=== PATIENT | female | born 1990 | race Caucasian/White ===

== ENCOUNTER 2016-12-25 10:24 | Day surgery (SDC) | payer OTHER ==
[2016-12-25] MEDS ORDERED: Midazolam 1 MG/ML 2 ML SDV ONE (10:39)
[2016-12-25] MEDS ORDERED: fentaNYL 100 MCG/2 ML SDV ONE ×2 (10:39→10:40)
[2016-12-25] MEDS ORDERED: Lidocaine 2% 5 ML SDV ONE (10:39)
[2016-12-25] MEDS ORDERED: Propofol 200 MG/20 ML SDV ONE (10:39)
[2016-12-25] MEDS ORDERED: Lactated Ringers 1,000 ML IV SCH (11:00)
--- NOTE | 2016-12-25 11:19 | PCM.PREANE ---
Preanesthetic Assessment - Anesthesia/Transfusion/Family Hx Anesthesia History: Prior Anesthesia Without Reaction Family History of Anesthesia Reaction: No Transfusion History: No Prior Transfusion(s) - Review of Systems General: No Symptoms Pulmonary: No Symptoms Cardiovascular: No Symptoms Gastrointestinal: Nausea Other: Reports: None - Physical Assessment NPO Status Date: 12/24/16 O2 Sat by Pulse Oximetry: 98 Respiratory Rate: 16 Vital Signs: Last Vital Signs Temp 37.0 C 12/25/16 11:08 Pulse 93 12/25/16 11:08 Resp 16 12/25/16 11:08 BP 136/86 12/25/16 11:08 Pulse Ox 98 12/25/16 11:08 Height: 1.68 m Weight: 68.946 kg ASA Class: 2 Mental Status: Alert & Oriented x3 Airway Class: Mallampati = 2 Dentition: Reports: Normal Dentition ROM/Head Extension: Full Lungs: Clear to Auscultation, Normal Respiratory Effort Cardiovascular: Regular Rate, Regular Rhythm - Lab Values: Laboratory Last Values WBC 7.66 K/uL (4.0-11.0) 12/25/16 11:05 RBC 4.46 M/uL (4.30-5.90) 12/25/16 11:05 Hgb 13.8 g/dL (12.0-16.0) 12/25/16 11:05 Hct 40.2 % (36.0-46.0) 12/25/16 11:05 MCV 90.1 fL (80.0-98.0) 12/25/16 11:05 MCH 30.9 pg (27.0-32.0) 12/25/16 11:05 MCHC 34.3 g/dL (31.0-37.0) 12/25/16 11:05 RDW Std Deviation 41.5 fl (28.0-62.0) 12/25/16 11:05 RDW Coeff of Lenin 13 % (11.0-15.0) 12/25/16 11:05 Plt Count 154 K/uL (150-400) 12/25/16 11:05 MPV 10.40 fL (7.40-12.00) 12/25/16 11:05 Nucleated RBC % 0.0 /100WBC 12/25/16 11:05 Nucleated RBCs # 0 K/uL 12/25/16 11:05 - Allergies Allergies/Adverse Reactions: Allergies Allergy/AdvReac Type Severity Reaction Status Date / Time hydrocodone Allergy Seizure Verified 12/24/16 13:57 - Anesthesia Plan Pre-Op Medication Ordered: None - Acknowledgements Anesthesia Type Planned: General Anesthesia Pt an Appropriate Candidate for the Planned Anesthesia: Yes Alternatives and Risks of Anesthesia Discussed w Pt/Guardian: Yes Pt/Guardian Understands and Agrees with Anesthesia Plan: Yes PreAnesthesia Questionnaire HEENT History: Reports: Other (See Below) Other HEENT History: wears glasses, hx of fx nose Respiratory History: Reports: Asthma Other Respiratory History: exercise induced asthma, rarely uses inhaler Gastrointestinal History: Reports: Chronic Constipation, Hemorrhoids [employer] COORD[employer] History: Reports: Other OB/BYN History: currently breast feeding Musculoskeletal History: Reports: Fracture, Other (See Below) Other Musculoskeletal History: scoliosis Neurological History: Reports: Seizure, Vertigo, Other (See Below) Other Neuro History: had seizure as a reaction to lortab, hydrocodone and a vaccination, has meniers disease, hx of motion sickness Psychiatric History: Reports: Anxiety, Depression Hematologic History: Reports: Idiopathic Thrombocytopenia Dermatologic History: Reports: Eczema - Infectious Disease History Infectious Disease History: Reports: Chicken Pox, Influenza, Mononucleosis - Past Surgical History HEENT Surgical History: Reports: Oral Surgery, Tonsillectomy Other HEENT Surgeries/Procedures: wisdom teeth - SUBSTANCE USE Smoking Status *Q: Never Smoker Second Hand Smoke Exposure: No Recreational Drug Use History: No - HOME MEDS Home Medications: Home Meds Doxylamine Succinate [Nighttime Sleep-Aid] 25 mg PO BEDTIME PRN 12/24/16 [ History] Ondansetron [Zofran] 4 mg PO ASDIRECTED PRN 12/24/16 [History] Sertraline [Zoloft] 100 mg PO DAILY 12/24/16 [History] - CURRENT (IN HOUSE) MEDS Current Meds: Current Medications Lactated Ringer's (Ringers, Lactated) 1,000 mls @ 100 mls/hr IV ASDIRECTED [facility] Last Admin: 12/25/16 11:07 Dose: 100 mls/hr Discontinued Medications Fentanyl (Sublimaze) Confirm Administered Dose 100 mcg .ROUTE .STK-MED ONE Stop: 12/25/16 10:40 Fentanyl (Sublimaze) Confirm Administered Dose 100 mcg .ROUTE .STK-MED ONE Stop: 12/25/16 10:41 Lidocaine (Xylocaine-Mpf 2%) Confirm Administered Dose 10 ml .ROUTE .STK-MED ONE Stop: 12/25/16 10:40 Midazolam HCl (Versed 1 Mg/Ml) Confirm Administered Dose 2 mg .ROUTE .STK-MED ONE Stop: 12/25/16 10:40 Propofol (Diprivan 20 Ml) Confirm Administered Dose 400 mg .ROUTE .STK-MED ONE Stop: 12/25/16 10:40
[2016-12-25] MEDS ORDERED: Acetaminophen/oxyCODONE 325-5 MG Tab PO PRN ×2 (12:15)
[2016-12-25] MEDS ORDERED: Ketorolac 30 MG/ML SDV IVPUSH ONE (12:15)
[2016-12-25] MEDS ORDERED: Morphine 4 MG/ML Syringe IVPUSH PRN (12:15)
[2016-12-25] MEDS ORDERED: Ondansetron 4 MG/2 ML SDV IVPUSH PRN (12:15)
[2016-12-25] MEDS ORDERED: Morphine 2 MG/ML Syringe IVPUSH PRN (12:15)
[2016-12-25] MEDS ORDERED: Promethazine 25 MG/ML SDV IM PRN (12:15)
--- NOTE | 2016-12-25 12:18 | PCM.DCSUM1 ---
Discharge Summary - Discharge Data Discharge Date: 12/25/16 Discharge Disposition: Home, Self-Care 01 Condition: Good - Patient Instructions Diet: Usual Diet as Tolerated Activity: As Tolerated Showering/Bathing: July Shower Notify Provider of: Fever, Increased Pain, Nausea and/or Vomiting - Discharge Plan Home Medications: Home Meds Doxylamine Succinate [Nighttime Sleep-Aid] 25 mg PO BEDTIME PRN 12/24/16 [ History] Ondansetron [Zofran] 4 mg PO ASDIRECTED PRN 12/24/16 [History] Sertraline [Zoloft] 100 mg PO DAILY 12/24/16 [History] - General Info Date of Service: 12/25/16 Functional Status: Reports: Pain Controlled - Review of Systems General: Reports: No Symptoms HEENT: Reports: No Symptoms Pulmonary: Reports: No Symptoms Cardiovascular: Reports: No Symptoms Gastrointestinal: Reports: No Symptoms Genitourinary: Reports: No Symptoms Musculoskeletal: Reports: No Symptoms Skin: Reports: No Symptoms Neurological: Reports: No Symptoms Psychiatric: Reports: No Symptoms - Patient Data Vitals - Most Recent: Last Vital Signs Temp 37.0 C 12/25/16 11:08 Pulse 93 12/25/16 11:08 Resp 16 12/25/16 11:19 BP 136/86 12/25/16 11:08 Pulse Ox 98 12/25/16 11:19 Weight - Most Recent: 68.946 kg Lab Results - Last 24 hrs: Laboratory Results - last 24 hr 12/25/16 12/25/16 Range/Units 11:05 11:05 WBC 7.66 (4.0-11.0) K/uL RBC 4.46 (4.30-5.90) M/uL Hgb 13.8 (12.0-16.0) g/dL Hct 40.2 (36.0-46.0) % MCV 90.1 (80.0-98.0) fL MCH 30.9 (27.0-32.0) pg MCHC 34.3 (31.0-37.0) g/dL RDW Std Deviation 41.5 (28.0-62.0) fl RDW Coeff of Lenin 13 (11.0-15.0) % Plt Count 154 (150-400) K/uL MPV 10.40 (7.40-12.00) fL Nucleated RBC % 0.0 /100WBC Nucleated RBCs # 0 K/uL Blood Type O POSITIVE Antibody Screen NEGATIVE Med Orders - Current: Current Medications Lactated Ringer's (Ringers, Lactated) 1,000 mls @ 100 mls/hr IV ASDIRECTED [facility] Last Admin: 12/25/16 11:07 Dose: 100 mls/hr Discontinued Medications Fentanyl (Sublimaze) Confirm Administered Dose 100 mcg .ROUTE .STK-MED ONE Stop: 12/25/16 10:40 Fentanyl (Sublimaze) Confirm Administered Dose 100 mcg .ROUTE .STK-MED ONE Stop: 12/25/16 10:41 Lidocaine (Xylocaine-Mpf 2%) Confirm Administered Dose 10 ml .ROUTE .STK-MED ONE Stop: 12/25/16 10:40 Midazolam HCl (Versed 1 Mg/Ml) Confirm Administered Dose 2 mg .ROUTE .STK-MED ONE Stop: 12/25/16 10:40 Propofol (Diprivan 20 Ml) Confirm Administered Dose 400 mg .ROUTE .STK-MED ONE Stop: 12/25/16 10:40 - Exam General: Reports: Alert, Oriented HEENT: Reports: Pupils Equal, Pupils Reactive, EOMI, Mucous Membr. Moist/[place] Neck: Reports: Supple Lungs: Reports: Clear to Auscultation, Normal Respiratory Effort Cardiovascular: Reports: Regular Rate, Regular Rhythm GI/Abdominal Exam: Normal Bowel Sounds, Soft, Non-Tender, No Organomegaly, No Distention, No Abnormal Bruit, No Mass, Pelvis Stable (Female) Exam: Normal External Exam, Normal Speculum Exam, Normal Bimanual Exam Rectal (Female) Exam: Normal Exam, Normal Rectal Tone Back Exam: Reports: Normal Inspection, Full Range of Motion Extremities: Normal Inspection, Normal Range of Motion, Non-Tender, No Pedal Edema, Normal Capillary Refill Skin: Reports: Warm, Dry, Intact Wound/Incisions: Reports: Healing Well Neurological: Reports: No New Focal Deficit Psy/Mental Status: Reports: Alert, Normal Affect, Normal Mood *Q Meaningful Use (DIS) - VTE *Q VTE Criteria *Q: - Stroke *Q Stroke Criteria *Q: - AMI *Q AMI Criteria *Q:
--- NOTE | 2016-12-25 12:20 | PCM.OPNOTE ---
- General Post-Op/Procedure Note Date of Surgery/Procedure: 12/25/16 Operative Procedure(s): D&E Pre Op Diagnosis: Blighted ovum Post-Op Diagnosis: Same Anesthesia Technique: General LMA Primary Surgeon: Moises Silva EBL in mLs: 100 Complications: None Condition: Good
[2016-12-25] MEDS ORDERED: fentaNYL 100 MCG/2 ML SDV IVPUSH PRN (12:25)
--- NOTE | 2016-12-25 12:48 | PCM.POSTAN ---
POST ANESTHESIA ASSESSMENT - MENTAL STATUS Mental Status: Alert, Oriented - RESPIRATORY Respiratory Status: Respiratory Rate WNL, Airway Patent, O2 Saturation Stable - CARDIOVASCULAR CV Status: Pulse Rate WNL, Blood Pressure Stable - GASTROINTESTINAL GI Status: No Symptoms - PAIN Pain Score: 0 - POST OP HYDRATION Hydration Status: Adequate & Stable
[2016-12-25] MEDS ORDERED: Acetaminophen/Codeine 300-30 MG Tab PO PRN (13:31)
[2016-12-25] MEDS ORDERED: Acetaminophen 325 MG Tab PO PRN (13:31)
--- NOTE | 2016-12-25 14:36 | PCM48HPAN ---
Post Anesthesia Note - EVALUATION WITHIN 48HRS OF ANESTHETIC Vital Signs in Normal Range: Yes Patient Participated in Evaluation: Yes Respiratory Function Stable: Yes Airway Patent: Yes Cardiovascular Function Stable: Yes Hydration Status Stable: Yes Pain Control Satisfactory: Yes Nausea and Vomiting Control Satisfactory: Yes Mental Status Recovered: Yes
[2016-12-25 15:05] VITALS: BP 102/70
[2016-12-25] MEDS ORDERED: Ketorolac 30 MG/ML SDV IVPUSH PRN (18:00)
--- NOTE | 2016-12-25 19:16 | OR ---
SURGEON: Moises Silva MD DATE OF PROCEDURE: 12/25/2016 PREOPERATIVE DIAGNOSIS: Blighted ovum. POSTOPERATIVE DIAGNOSIS: Blighted ovum. OPERATION PERFORMED: Dilatation and evacuation. RING SORTER: No. ANESTHESIA: ANH Doss. COMPLICATION: None. INDICATION OF SURGERY: The patient had a declining beta hCG-ADOLFO. She had repeated ultrasound which shows pulse and no cardiac activity. PROCEDURE IN DETAIL: The patient was brought to the OR, properly identified, and after adequate level of the anesthesia, the patient placed in lithotomy position. Prepped and draped in sterile fashion as usual. Single-tooth tenaculum was applied to the cervix and the cervix sequentially dilated to accommodate #8 cannula. The cannula was placed in the endometrial cavity. The endometrial cavity is evacuated completely from all products of conception. After that, a gentle curetting of the endometrial cavity to make sure it was empty. Once ascertained it was empty, re-suctioning of the endometrium cavity was done and after that, the procedure was ended. Instrument and sponge count was correct. The patient tolerated the procedure well and went to recovery room in stable general condition. BRITTNEE / IRENA /[id number]
== END 2016-12-25 14:55 | disposition home or self-care (01) ==
LOC: MW.SDS 10:24
PROVIDERS: ATTEND Obstetrics & Gynecology
DX: O02.0 Blighted ovum and nonhydatidiform mole (principal); F41.8 Other specified anxiety disorders; J45.990 Exercise induced bronchospasm; Z79.899 Other long term (current) drug therapy; Z88.5 Allergy status to narcotic agent; Z90.89 Acquired absence of other organs; Z98.818 Other dental procedure status
CPT/HCPCS: 36415; 59820; 85027; 86850; 86900; 86901; A9270; J2250; J3010; J7120; 00940; 88305; J2704

== ENCOUNTER 2020-07-29 23:42 | Inpatient (IN) | payer BC ==
[2020-07-29] MEDS ORDERED: Oxytocin/0.9 % Sodium Chloride 30 UNIT/500 ML BAG IV SCH ×2 (23:45)
[2020-07-29] MEDS ORDERED: Terbutaline 1 MG/ML SDV SUBCUT PRN (23:47)
[2020-07-29] MEDS ORDERED: Ondansetron 4 MG/2 ML SDV IVPUSH PRN (23:47)
[2020-07-29] MEDS ORDERED: Sodium Chloride 0.9% 10 ML SDV IV PRN (23:47)
[2020-07-29] MEDS ORDERED: Misoprostol 25 MCG (1/4 of 100 MCG) Tab VAG PRN (23:47)
[2020-07-29] MEDS ORDERED: Water For Irrigation,Sterile 1,000 ML Container IRR PRN (23:47)
[2020-07-29] MEDS ORDERED: Lidocaine 1% 50 ML MDV INJECT PRN (23:47)
[2020-07-29] MEDS ORDERED: Sodium Chloride 0.9% 10 ML Syringe FLUSH PRN (23:47)
[2020-07-29] MEDS ORDERED: Carboprost Tromethamine 250 MCG/1 ML Amp IM PRN (23:47)
[2020-07-29] MEDS ORDERED: Sodium Chloride 0.9% 2.5 ML Syringe FLUSH PRN (23:47)
[2020-07-29] MEDS ORDERED: Tranexamic Acid 1,000 MG in Sodium Chloride 0.9% 100 ML IV PRN (23:47)
[2020-07-29] MEDS ORDERED: Misoprostol 200 MCG Tab PO PRN (23:47)
[2020-07-29] MEDS ORDERED: hydrOXYzine Pamoate 25 MG Cap PO PRN (23:57)
[2020-07-30] MEDS: Lactated Ringers 1,000 ML IV SCH ×2 (00:15→12:50)
[2020-07-30] MEDS: Misoprostol 25 MCG (1/4 of 100 MCG) Tab PO PRN ×2 (01:02→05:17)
[2020-07-30] MEDS ORDERED: Misoprostol 25 MCG (1/4 of 100 MCG) Tab PO PRN (04:00)
[2020-07-30] MEDS: Misoprostol 25 MCG (1/4 of 100 MCG) Tab VAG PRN (05:17)
--- NOTE | 2020-07-30 07:37 | PCM.LDHP ---
L&D History of Present Illness - General Date of Service: 07/30/20 Admit Problem/Dx: Patient Status Order with Admit Dx/Problem 07/29/20 23:47 Patient Status [ADT] Routine 07/30/20 00:54 Patient Status [ADT] Routine Admission Diagnosis/Problem Admission Diagnosis/Problem 07/30/20 07:23 [id number] @ 42 weeks gestation ([place]: 07/16/20 by LMP) presenting to L&D for induction of labor due to low amniotic fluid level and post-dates. She was seen in our clinic by Evelia Harvey CNM for a consult d/t post-dates . That was her first visit with us in the clinic. Prior to that, she had been followed by a Slabbing Machine Operator (DEM) and had planned for a home delivery. Reactive NST obtained. However, BPP was 6/8 with 2 points off for amniotic fluid (DVP: 1.8 cm). A discussion was had regarding our recommendation for induction. Patient desired to speak with her apple thinner and report back. She later decided to move forward with induction. Patient reports increased anxiety with medical care. 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 She has also experienced SAB x10 (2 resulting in D&E). She reports having completed and passed a limited glucose challenge during . Reports to nurse that she smokes marijuana almost daily; reports she has a medical marijuana card. Anatomic survey not completed. She declines GBS screening; status unknown. Reports to nurse that she was GBS+ with her other children. Declines GBS disease with previous pregnancies. Hyperemesis gravidarum reported this ; treated adequately with Diclegis. Pre- weight reported as 160 lbs (BMI: 25.8). She has gained approximately 54 lbs this . O+, Rubella unknown 07/30/20 07:37 Source of Information: Patient History Limitations: Reports: No Limitations - Related Data Allergies/Adverse Reactions: Allergies Allergy/AdvReac Type Severity Reaction Status Date / Time hydrocodone Allergy Seizure Verified 07/28/20 20:28 oxycodone Allergy Seizure Verified 07/28/20 20:28 Home Medications: Home Meds Ondansetron [Zofran] 8 mg PO ASDIRECTED PRN 12/24/16 [History] Albuterol Sulfate 1 inh NEB ASDIRECTED PRN 10/25/17 [History] Cholecalciferol (Vitamin D3) [Vitamin D3] 1,000 units PO DAILY 10/25/17 [History] Doxylamine Succinate/Vit B6 [Diclegis Dr 10-10 mg Tablet] 2 tab PO BID 10/25/17 [History] Pnv No.95/Ferrous Fum/Folic AC [ Vitamin Tablet] 1 tab PO DAILY 10/25/17 [History] Past Medical History HEENT History: Reports: Other (See Below) Other HEENT History: wears glasses, hx of fx nose Cardiovascular History: Reports: Other (See Below) Other Cardiovascular History: "low blood pressure" Respiratory History: Reports: Asthma Other Respiratory History: exercise induced asthma, rarely uses inhaler Gastrointestinal History: Reports: Hemorrhoids Genitourinary History: Reports: None 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: , Spontaneous Musculoskeletal History: Reports: Fracture, Other (See Below) Other Musculoskeletal History: scoliosis Neurological History: Reports: Migraines, Seizure, Vertigo, Other (See Below) Other Neuro History: had seizure as a reaction to lortab, oxycodone and a vaccination, has meniers disease, hx of motion sickness Psychiatric History: Reports: Anxiety, Depression Endocrine/Metabolic History: Reports: None Hematologic History: Reports: Idiopathic Thrombocytopenia, Other (See Below) Other Hematologic History: had bleeding disorder at the age of 11, no problems since Dermatologic History: Reports: Eczema - Infectious Disease History Infectious Disease History: Reports: Chicken Pox, Influenza, Mononucleosis - Past Surgical History Head Surgeries/Procedures: Reports: None HEENT Surgical History: Reports: Oral Surgery, Tonsillectomy Other HEENT Surgeries/Procedures: wisdom teeth extraction Social & Family History - Family History HEENT: Reports: Hearing Impairment, Macular Degeneration, Other (See Below) Other HEENT Family History: meneires disease Respiratory: Reports: Asthma GI: Reports: Chronic Constipation, Diverticulitis, Diverticulosis : Reports: Other (See Below) Other Family History: brother enlarged prostate OBGYN: Reports: PID, Other (See Below) Other OBGYN Family History: STd-sister Musculoskeletal: Reports: Back pain, Chronic, Neck Pain, Chronic, Osteoarthritis Neurological: Reports: Alzheimers Disease, Migraines, Seizure Psychiatric: Reports: Anxiety, Bipolar, Depression, PTSD, Schizophrenia Endocrine/Metabolic: Reports: Diabetes, Type I, Obesity/MBI 30+ Dermatologic: Reports: Eczema Oncologic: Reports: Lung - Caffeine Use Caffeine Use: Reports: Coffee H&P Review of Systems - Review of Systems: Review Of Systems: See Below General: Reports: No Symptoms HEENT: Reports: No Symptoms Pulmonary: Reports: No Symptoms Cardiovascular: Reports: No Symptoms Gastrointestinal: Reports: No Symptoms Genitourinary: Reports: No Symptoms Musculoskeletal: Reports: No Symptoms Skin: Reports: No Symptoms Psychiatric: Reports: No Symptoms Neurological: Reports: No Symptoms Hematologic/Lymphatic: Reports: No Symptoms Immunologic: Reports: No Symptoms L&D Exam - Exam Exam: See Below - Vital Signs Weight: 214 lb - OB Specific Movement: Active Heart Tones: Present Heart Rate (FHR) Variability: Moderate (6-25 bmp) - Prasad Score Prasad Score Cervix Position: Midposition Prasad Score Consistency: Medium Prasad Score Effacement: 31-50% Prasad Score Dilation: 1-2 cm Prasad Score Infant's Station: -2 Prasad Score Total: 5 - Exam General: Alert, Oriented, Cooperative Lungs: Normal Respiratory Effort Cardiovascular: Regular Rate, Regular Rhythm GI/Abdominal Exam: Soft, Non-Tender Rectal Exam: Deferred Genitourinary: Deferred Back Exam: Normal Inspection, Full Range of Motion Extremities: Normal Inspection, Normal Range of Motion, Non-Tender, Normal Capillary Refill Skin: Warm, Dry, Intact Neurological: Strength Equal Bilateral, Normal Speech, Normal Tone, Sensation Intact Psychiatric: Alert, Normal Affect, Normal Mood - Patient Data Lab Results Last 24 hrs: Laboratory Results - last 24 hr 07/30/20 07/30/20 07/30/20 Range/Units 00:15 00:15 00:15 WBC 13.21 H (4.0-11.0) K/uL RBC 4.49 (4.30-5.90) M/uL Hgb 12.6 (12.0-16.0) g/dL Hct 38.6 (36.0-46.0) % MCV 86.0 (80.0-98.0) fL MCH 28.1 (27.0-32.0) pg MCHC 32.6 (31.0-37.0) g/dL RDW Std Deviation 44.2 (28.0-62.0) fl RDW Coeff of Lenin 15 (11.0-15.0) % Plt Count 222 (150-400) K/uL MPV 10.00 (7.40-12.00) fL Urine Color Cancelled Urine Appearance Cancelled Urine pH Cancelled Ur Specific [place] Cancelled Urine Protein Cancelled Urine Glucose (UA) Cancelled Urine Ketones Cancelled Urine Occult Blood Cancelled Urine Nitrite Cancelled Urine Bilirubin Cancelled Urine Ictotest Cancelled Urine Urobilinogen Cancelled Ur Leukocyte Esterase Cancelled U Hyaline Cast (Auto) Cancelled Urine RBC Cancelled Urine WBC Cancelled Ur Epithelial Cells Cancelled Ur Squamous Epith Cells Cancelled Ur Renal Epithelial Cell Cancelled Calcium Oxalate Crystal Cancelled Uric Acid Crystals Cancelled Triple Phos Crystals Cancelled Other Crystals Cancelled Amorphous Sediment Cancelled Urine Bacteria Cancelled Fine Granular Casts Cancelled Coarse Granular Casts Cancelled Waxy Casts Cancelled RBC Casts Cancelled WBC Casts Cancelled Urine Mucus Cancelled Urine Other Cancelled Urine Trichomonas Cancelled Urine Yeast Cancelled Urine Sperm Cancelled Ur Oval Fat Bodies Cancelled Urinalysis Comment Cancelled Urine Opiates Screen NEGATIVE (NEGATIVE) Ur Oxycodone Screen NEGATIVE (NEGATIVE) Urine Methadone Screen NEGATIVE (NEGATIVE) Ur Barbiturates Screen NEGATIVE (NEGATIVE) Ur Phencyclidine Scrn NEGATIVE (NEGATIVE) Ur Amphetamine Screen NEGATIVE (NEGATIVE) U Methamphetamines Scrn NEGATIVE (NEGATIVE) U Benzodiazepines Scrn NEGATIVE (NEGATIVE) U Cocaine Metab Screen NEGATIVE (NEGATIVE) U Marijuana (THC) Screen POSITIVE (NEGATIVE) Hep Bs Antigen Index (<1.0) INDEX Hep C Ab Index (GENNA) (<0.8) INDEX Rubella IgG Ab Index IU/mL SARS-CoV-2 RNA (RODRIGO) (NEGATIVE) Blood Type Antibody Screen 07/30/20 07/30/20 07/30/20 Range/Units 00:15 00:15 00:15 WBC (4.0-11.0) K/uL RBC (4.30-5.90) M/uL Hgb (12.0-16.0) g/dL Hct (36.0-46.0) % MCV (80.0-98.0) fL MCH (27.0-32.0) pg MCHC (31.0-37.0) g/dL RDW Std Deviation (28.0-62.0) fl RDW Coeff of Lenin (11.0-15.0) % Plt Count (150-400) K/uL MPV (7.40-12.00) fL Urine Color Urine Appearance Urine pH Ur Specific [place] Urine Protein Urine Glucose (UA) Urine Ketones Urine Occult Blood Urine Nitrite Urine Bilirubin Urine Ictotest Urine Urobilinogen Ur Leukocyte Esterase U Hyaline Cast (Auto) Urine RBC Urine WBC Ur Epithelial Cells Ur Squamous Epith Cells Ur Renal Epithelial Cell Calcium Oxalate Crystal Uric Acid Crystals Triple Phos Crystals Other Crystals Amorphous Sediment Urine Bacteria Fine Granular Casts Coarse Granular Casts Waxy Casts RBC Casts WBC Casts Urine Mucus Urine Other Urine Trichomonas Urine Yeast Urine Sperm Ur Oval Fat Bodies Urinalysis Comment Urine Opiates Screen (NEGATIVE) Ur Oxycodone Screen (NEGATIVE) Urine Methadone Screen (NEGATIVE) Ur Barbiturates Screen (NEGATIVE) Ur Phencyclidine Scrn (NEGATIVE) Ur Amphetamine Screen (NEGATIVE) U Methamphetamines Scrn (NEGATIVE) U Benzodiazepines Scrn (NEGATIVE) U Cocaine Metab Screen (NEGATIVE) U Marijuana (THC) Screen (NEGATIVE) Hep Bs Antigen Index 0.1 (<1.0) INDEX Hep C Ab Index (GENNA) < 0.02 (<0.8) INDEX Rubella IgG Ab Index > 500.0 IU/mL SARS-CoV-2 RNA (RODRIGO) NEGATIVE (NEGATIVE) Blood Type O POSITIVE Antibody Screen NEGATIVE Result Diagrams: 07/30/20 00:15 - Problem List (1) Supervision of normal IUP (intrauterine ) in multigravida SNOMED Code(s): 294219276, 482282486, 360820541 ICD Code: Z34.80 - ENCOUNTER FOR SUPRVSN OF NORMAL , UNSP TRIMESTER Status: Acute Priority: High Current Visit: Yes Qualifiers: Trimester: third trimester Qualified Code(s): Z34.83 - Encounter for supervision of other normal , third trimester (2) History of trauma SNOMED Code(s): 448476024 ICD Code: Z87.898 - PERSONAL HISTORY OF OTHER SPECIFIED CONDITIONS Status: Acute Priority: High Current Visit: Yes (3) Marijuana use SNOMED Code(s): 328612596 ICD Code: F12.90 - CANNABIS USE, UNSPECIFIED, UNCOMPLICATED Status: Acute Priority: High Current Visit: Yes (4) Anxiety during in third trimester, antepartum SNOMED Code(s): 37434107692024, 98142456386698 ICD Code: O99.343 - OTH MENTAL DISORDERS COMPLICATING , THIRD TRIMESTER; F41.9 - ANXIETY DISORDER, UNSPECIFIED Status: Acute Priority: High Current Visit: Yes Problem List Initiated/Reviewed/Updated: Yes Orders Last 24hrs: Active Orders 24 hr Category Date Time Status Patient Status [ADT] Routine ADT 07/30/20 00:54 Active Bedrest Bathroom Privileges [RC] ASDIRECTED Care 07/29/20 23:47 Active Communication Order [RC] ASDIRECTED Care 07/29/20 23:47 Active Communication Order [RC] ASDIRECTED Care 07/29/20 23:47 Active Communication Order [RC] ASDIRECTED Care 07/29/20 23:47 Active Heart Tones [RC] CONTINUOUS Care 07/29/20 23:47 Active Non Stress Test [RC] PER UNIT ROUTINE Care 07/29/20 23:47 Active May Shower [RC] ASDIRECTED Care 07/29/20 23:47 Active Notify Provider [RC] PRN Care 07/29/20 23:47 Active Notify Provider [RC] PRN Care 07/29/20 23:47 Active Notify Provider [RC] PRN Care 07/29/20 23:47 Active Notify Provider [RC] STAT Care 07/29/20 23:47 Active Oxygen Therapy [RC] ASDIRECTED Care 07/29/20 23:47 Active Up ad Iveth [RC] ASDIRECTED Care 07/29/20 23:47 Active Vaginal Exam [RC] PRN Care 07/29/20 23:47 Active Vaginal Exam [RC] PRN Care 07/29/20 23:47 Active Vital Signs [RC] PER UNIT ROUTINE Care 07/29/20 23:47 Active Vital Signs [RC] PER UNIT ROUTINE Care 07/29/20 23:47 Active Regular Diet [DIET] Diet 07/29/20 Breakfast Active CHLAMYDIA AND GONORRHEA BY TMA Routine Lab 07/29/20 23:47 Received GROUP B STREP BY PCR [MOLEC] Routine Lab 07/29/20 23:47 Received RPR (SYPHILIS SERO) W/ RFLX [REF] Routine Lab 07/29/20 23:47 Received UA W/MICROSCOPIC [URIN] Routine Lab 07/30/20 00:15 Ordered Carboprost Tromethamine [Hemabate DS] Med 07/29/20 23:47 Active 250 mcg IM ASDIRECTED PRN Lactated Ringers [Ringers, Lactated] 1,000 ml Med 07/29/20 23:45 Active IV ASDIRECTED Lidocaine 1% [Xylocaine 1%] Med 07/29/20 23:47 Active 50 ml INJECT ONETIME PRN Ondansetron [Zofran] Med 07/29/20 23:47 Active 4 mg IVPUSH Q6H PRN Oxytocin/0.9 % Sodium Chloride [Oxytocin 30 Unit/500 ML Med 07/29/20 23:45 Active -NS] 30 unit in 500 ml IV TITRATE Oxytocin/0.9 % Sodium Chloride [Oxytocin 30 Unit/500 ML Med 07/29/20 23:45 Active -NS] 30 unit in 500 ml IV TITRATE Sodium Chloride 0.9% [Normal Saline] Med 07/29/20 23:47 Active 10 ml IV ASDIRECTED PRN Sodium Chloride 0.9% [Saline Flush] Med 07/29/20 23:47 Active 10 ml FLUSH ASDIRECTED PRN Sodium Chloride 0.9% [Saline Flush] Med 07/29/20 23:47 Active 2.5 ml FLUSH ASDIRECTED PRN Terbutaline [Brethine] Med 07/29/20 23:47 Active 0.25 mg SUBCUT ASDIRECTED PRN Tranexamic Acid [Cyklokapron] 1,000 mg Med 07/29/20 23:47 Active Sodium Chloride 0.9% [Normal Saline] 100 ml IV ONETIME Water For Irrigation,Sterile [Sterile Water for Med 07/29/20 23:47 Active Irrigation] 1,000 ml IRR ASDIRECTED PRN hydrOXYzine pamoate [Vistaril] Med 07/29/20 23:57 Active 50 mg PO BEDTIME PRN miSOPROStoL [Cytotec] Med 07/29/20 23:47 Active 200 mcg PO ONETIME PRN miSOPROStoL [Cytotec] Med 07/29/20 23:47 Active 25 mcg PO ONETIME PRN miSOPROStoL [Cytotec] Med 07/30/20 04:00 Active 25 mcg PO Q4H PRN miSOPROStoL [Cytotec] Med 07/29/20 23:47 Active 25 mcg VAG ONETIME PRN miSOPROStoL [Cytotec] Med 07/30/20 04:00 Active 25 mcg VAG Q4H PRN Scalp Electrode [WOMSER] Per Unit Routine Oth 07/29/20 23:47 Ordered Medication Administration Instruction [OM.PC] Q3H Oth 07/29/20 23:47 Ordered Peripheral IV Insertion Adult [OM.PC] Routine Oth 07/29/20 23:47 Ordered Resuscitation Status Routine Resus Stat 07/29/20 23:47 Ordered Medication Orders Carboprost Tromethamine (Carboprost Tromethamine 250 Mcg/1 Ml Amp) 250 mcg IM ASDIRECTED PRN PRN Reason: Post Hemorrhage Hydroxyzine Pamoate (Hydroxyzine Pamoate 25 Mg Cap) 50 mg PO BEDTIME PRN PRN Reason: Sleep Last Admin: 07/30/20 01:02 Dose: 50 mg Documented by: ARIEL Oxytocin/Sodium Chloride (Oxytocin 30 Unit/500 Ml-Ns) 30 unit in 500 mls @ 2 mls/hr IV TITRATE ALISON; Protocol Lactated Ringer's (Ringers, Lactated) 1,000 mls @ 150 mls/hr IV ASDIRECTED ALISON Last Admin: 07/30/20 00:15 Dose: 150 mls/hr Documented by: ARIEL Oxytocin/Sodium Chloride (Oxytocin 30 Unit/500 Ml-Ns) 30 unit in 500 mls @ 999 mls/hr IV TITRATE ALISON Tranexamic Acid 1,000 mg/ (Sodium Chloride) 110 mls @ 660 mls/hr IV ONETIME PRN PRN Reason: Bleeding Lidocaine HCl (Lidocaine 1% 50 Ml Mdv) 50 ml INJECT ONETIME PRN PRN Reason: Laceration repair Misoprostol (Misoprostol 25 Mcg (1/4 Of 100 Mcg) Tab) 25 mcg VAG ONETIME PRN PRN Reason: Cervical Ripening Last Admin: 07/30/20 01:05 Dose: 25 mcg Documented by: ARIEL Misoprostol (Misoprostol 25 Mcg (1/4 Of 100 Mcg) Tab) 25 mcg VAG Q4H PRN PRN Reason: Cervical Ripening Last Admin: 07/30/20 05:17 Dose: 25 mcg Documented by: ARIEL Misoprostol (Misoprostol 200 Mcg Tab) 200 mcg PO ONETIME PRN PRN Reason: Post Hemorrhage Misoprostol (Misoprostol 25 Mcg (1/4 Of 100 Mcg) Tab) 25 mcg PO ONETIME PRN PRN Reason: Cervical Ripening Last Admin: 07/30/20 05:17 Dose: 25 mcg Documented by: Admin: 07/30/20 01:02 Dose: 25 mcg Documented by: ARIEL Misoprostol (Misoprostol 25 Mcg (1/4 Of 100 Mcg) Tab) 25 mcg PO Q4H PRN PRN Reason: Cervical Ripening Ondansetron HCl (Ondansetron 4 Mg/2 Ml Sdv) 4 mg IVPUSH Q6H PRN PRN Reason: Nausea/Vomiting Sodium Chloride (Sodium Chloride 0.9% 10 Ml Syringe) 10 ml FLUSH ASDIRECTED PRN PRN Reason: Keep Vein Open Sodium Chloride (Sodium Chloride 0.9% 2.5 Ml Syringe) 2.5 ml FLUSH ASDIRECTED PRN PRN Reason: Keep Vein Open Sodium Chloride (Sodium Chloride 0.9% 10 Ml Sdv) 10 ml IV ASDIRECTED PRN PRN Reason: IV Use Sterile Water (Water For Irrigation,Sterile 1,000 Ml Container) 1,000 ml IRR ASDIRECTED PRN PRN Reason: delivery Terbutaline Sulfate (Terbutaline 1 Mg/Ml Sdv) 0.25 mg SUBCUT ASDIRECTED PRN PRN Reason: Tacysystole Assessment/Plan Comment:: A: [id number] @ 42 weeks gestation ([place]: 07/16/20 by LMP) presenting to L&D for induction of labor due to low amniotic fluid level and post-dates. She was seen in our clinic by Evelia Harvey CNM for a consult d/t post-dates . That was her first visit with us in the clinic. Prior to that, she had been followed by a Slabbing Machine Operator (DEM) and had planned for a home delivery. Reactive NST obtained. However, BPP was 6/8 with 2 points off for amniotic fluid (DVP: 1.8 cm). A discussion was had regarding our recommendation for induction. Patient desired to speak with her apple thinner and report back. She later decided to move forward with induction. Patient reports increased anxiety with medical care. 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 She has also experienced SAB x10 (2 resulting in D&E). She reports having completed and passed a limited glucose challenge during . Reports to nurse that she smokes marijuana almost daily; reports she has a medic al marijuana card. Anatomic survey not completed. She declines GBS screening; status unknown. Reports to nurse that she was GBS+ with her other children. Declines GBS disease with previous pregnancies. Hyperemesis gravidarum reported this ; treated adequately with Diclegis. Pre- weight reported as 160 lbs (BMI: 25.8). She has gained approximately 54 lbs this . O+, Rubella unknown P: Admit for induction; cytotec to pitocin; epidural PRN; Dr. Silva updated.
[2020-07-30] MEDS ORDERED: Promethazine 25 MG Tab PO PRN ×2 (17:30→19:46)
[2020-07-30] MEDS ORDERED: Misoprostol 25 MCG (1/4 of 100 MCG) Tab PO ONE (17:31)
[2020-07-30] MEDS ORDERED: Misoprostol 25 MCG (1/4 of 100 MCG) Tab VAG ONE (17:32)
[2020-07-31] MEDS ORDERED: Misoprostol 25 MCG (1/4 of 100 MCG) Tab PO ONE (00:09)
[2020-07-31] MEDS: Misoprostol 25 MCG (1/4 of 100 MCG) Tab VAG PRN (00:38)
--- NOTE | 2020-07-31 06:14 | PCM.DEL ---
L & D Note - General Info Date of Service: 07/31/20 Mother's Due Date: 07/16/20 - Delivery Note Labor: Spontaneous, Augmented by ARM Cervical Ripening Method: Misoprostil Delivery Outcome: Livebirth Delivery Method: Spontaneous Vaginal Delivery-Single Infant Delivery Mode: Spontaneous Presentation: Vertex Anesthesia Type: None Amniotic Fluid Description: Meconium Stained Episiotomy Type: None Laceration: Perineal, Other (Left periclitoral skin tear, perineal skin tear; hemostatic, not repaired.) Placenta: Intact, Spontaneous, Meconium Stained Cord: 3 Vessels Estimated Blood Loss: 600 Resuscitation Needed: Yes Parsons: Suctioned, Bulb Syringe, Cathether, Stimulated, Warmed, [place] Used, Warmer Used Score 1 min: 2 Score 5 min: 8 Post Delivery Events: Other (see below) (Suspected terminal placental abruption.) Second Stage Interventions: Reports: Encouragement Given, Pushing Effectively, Pushing Involuntarily, Pushing, Knee Chest Position Delivery Comments (Free Text/Narrative):: Megan () s/p of viable post-dates NBM @ 42+1 weeks gestation (TORRIE(LMP) 07/16/20) following IOL d/t low amniotic fluid level and post-dates . She was seen in our clinic by Evelia Harvey CNM for a consult d/t post-dates 07/29/2020. That was her first medical visit this ; received care and limited testing with DEM. Cytotec IOL following BPP+NST 10/29 (-2 for LUIGI 2.9 (SDP 1.8)). O pos, Ab screen neg, R unknown, GBS positive with declination of prophylactic antibiotics for duration of labor. Cat I FHTs for most of prodromal labor. Cat II FHTs with deep variables into the 60s-80s with slow recovery back to 120s noted around 0430, RN called CNM to come at that time. Continuous monitoring implemented, IV bolus, position changes, and O2 applied to mother continuously for intrauterine resuscitation. Dr. Silva called to bedside at ~0500 am. SHWETHA instructed RN to notify assistant prosecuting attorney and RT to be on standby on unit. Membranes continued to remain intact at this time. Pain moderately controlled with coping mechanisms and breathing techniques, unmedicated. Dr. Silva present at bedside, EFM reviewed. SVE 5/100/-1 with bulging bag, AROM with no fluid completed at 0530 am, brief prolonged 1.5 min decelerations x2 noted in with the next 2 contractions then improvement of FHTs noted with contractions noted thereafter. Spontaneous involuntary pushes commenced at ~ 0540 am in hands and knees position. head delivered with involuntary pushes ~ 0550, body followed immediately thereafter with ~ 400-500 ml laya blood birthed with body indicative of terminal placenta abruption. Body nuchal reduced from right shoulder. Umbilical cord clamped x 2, cut by BETHM immediately following delivery. NBM brought immediately to warmer for assessment and resuscitation. Placenta birthed immediately with next contraction. None to scant vaginal bleeding then noted. IV pitocin bolus declined at this time for active third stage management, not indicated at this time. Patient then moved from hands and knees to semi-fowlers position. Uterus firm @U, no vaginal bleeding noted. Minor left periclitoral and perineal skin tears noted, hemostatic, not repaired. Cord blood difficult to collect from umbilical cord, sent to lab. Unable to collect cord gasses due to inadequate cord sample, attempted by RN x2. EBL 600 ml. APGARS 2/8. Weight 3670 g (8 lb 1 oz). Induction Criteria - Prasad Score Prasad Score Dilation: 3-4 cm Prasad Score Effacement: 40-50% Prasad Score 's Station: -3 Prasad Score Consistency: Soft Prasad Score Cervix Position: Posterior Prasad Score Total: 5 Prasad Score Presenting Part: Reports: Cephalic - Induction Gestational Age >/= 39 wks: Yes Estimated Pelvis: Reports: Adequate - General Info Date of Service: 07/31/20 Admission Dx/Problem (Free Text): Patient Status Order with Admit Dx/Problem 07/29/20 23:47 Patient Status [ADT] Routine 07/30/20 00:54 Patient Status [ADT] Routine Admission Diagnosis/Problem Admission Diagnosis/Problem 07/30/20 07:23 [id number] @ 42 weeks gestation ([place]RIE: 07/16/20 by LMP) presenting to L&D for induction of labor due to low amniotic fluid level and post-dates. She was seen in our clinic by Evelia Harvey CNM for a consult d/t post-dates . That was her first visit with us in the clinic. Prior to that, she had been followed by a Pmo Consultant (HELENA) and had planned for a home delivery. Reactive NST obtained. However, BPP was 6/8 with 2 points off for amniotic fluid (DVP: 1.8 cm). A discussion was had regarding our recommendation for induction. Patient desired to speak with her electric range servicer and report back. She later decided to move forward with induction. Patient reports increased anxiety with medical care. 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 She has also experienced SAB x10 (2 resulting in D&E). She reports having completed and passed a limited glucose challenge during . Reports to nurse that she smokes marijuana almost daily; reports she has a medical marijuana card. Anatomic survey not completed. She declines GBS screening; status unknown. Reports to nurse that she was GBS+ with her other children. Declines GBS disease with previous pregnancies. Hyperemesis gravidarum reported this ; treated adequately with Diclegis. Pre- weight reported as 160 lbs (BMI: 25.8). She has gained approximately 54 lbs this . O+, Rubella unknown 07/30/20 07:37 Functional Status: Reports: Pain Controlled, Tolerating Diet, Ambulating, Urinating - Review of Systems General: Reports: No Symptoms HEENT: Reports: No Symptoms Pulmonary: Reports: No Symptoms Cardiovascular: Reports: No Symptoms Gastrointestinal: Reports: No Symptoms Genitourinary: Reports: No Symptoms Musculoskeletal: Reports: No Symptoms Skin: Reports: No Symptoms Neurological: Reports: No Symptoms Psychiatric: Reports: No Symptoms - Patient Data Vitals - Most Recent: VSS, afebrile. See flowsheet. Weight - Most Recent: 214 lb Lab Results Last 24 Hours: Laboratory Results - last 24 hr 07/30/20 Range/Units 00:15 Group B Strep (PCR) POSITIVE H (NEGATIVE) Med Orders - Current: Current Medications Carboprost Tromethamine (Carboprost Tromethamine 250 Mcg/1 Ml Amp) 250 mcg IM ASDIRECTED PRN PRN Reason: Post Hemorrhage Hydroxyzine Pamoate (Hydroxyzine Pamoate 25 Mg Cap) 50 mg PO BEDTIME PRN PRN Reason: Sleep Last Admin: 07/30/20 01:02 Dose: 50 mg Documented by: Oxytocin/Sodium Chloride (Oxytocin 30 Unit/500 Ml-Ns) 30 unit in 500 mls @ 2 mls/hr IV TITRATE [facility]; Protocol Lactated Ringer's (Ringers, Lactated) 1,000 mls @ 150 mls/hr IV ASDIRECTED ALISON Last Admin: 07/30/20 12:50 Dose: 999 mls/hr Documented by: Oxytocin/Sodium Chloride (Oxytocin 30 Unit/500 Ml-Ns) 30 unit in 500 mls @ 999 mls/hr IV TITRATE ALISON Tranexamic Acid 1,000 mg/ (Sodium Chloride) 110 mls @ 660 mls/hr IV ONETIME PRN PRN Reason: Bleeding Lidocaine HCl (Lidocaine 1% 50 Ml Mdv) 50 ml INJECT ONETIME PRN PRN Reason: Laceration repair Misoprostol (Misoprostol 25 Mcg (1/4 Of 100 Mcg) Tab) 25 mcg VAG ONETIME PRN PRN Reason: Cervical Ripening Last Admin: 07/30/20 01:05 Dose: 25 mcg Documented by: Misoprostol (Misoprostol 25 Mcg (1/4 Of 100 Mcg) Tab) 25 mcg VAG Q4H PRN PRN Reason: Cervical Ripening Last Admin: 07/31/20 00:38 Dose: 25 mcg Documented by: Misoprostol (Misoprostol 200 Mcg Tab) 200 mcg PO ONETIME PRN PRN Reason: Post Hemorrhage Misoprostol (Misoprostol 25 Mcg (1/4 Of 100 Mcg) Tab) 25 mcg PO ONETIME PRN PRN Reason: Cervical Ripening Last Admin: 07/30/20 05:17 Dose: 25 mcg Documented by: Ondansetron HCl (Ondansetron 4 Mg/2 Ml Sdv) 4 mg IVPUSH Q6H PRN PRN Reason: Nausea/Vomiting Promethazine HCl (Promethazine 25 Mg Tab) 50 mg PO Q8H PRN PRN Reason: Other Last Admin: 07/30/20 19:57 Dose: 50 mg Documented by: Sodium Chloride (Sodium Chloride 0.9% 10 Ml Syringe) 10 ml FLUSH ASDIRECTED PRN PRN Reason: Keep Vein Open Sodium Chloride (Sodium Chloride 0.9% 2.5 Ml Syringe) 2.5 ml FLUSH ASDIRECTED PRN PRN Reason: Keep Vein Open Sodium Chloride (Sodium Chloride 0.9% 10 Ml Sdv) 10 ml IV ASDIRECTED PRN PRN Reason: IV Use Sterile Water (Water For Irrigation,Sterile 1,000 Ml Container) 1,000 ml IRR ASDIRECTED PRN PRN Reason: delivery Terbutaline Sulfate (Terbutaline 1 Mg/Ml Sdv) 0.25 mg SUBCUT ASDIRECTED PRN PRN Reason: Tacysystole Discontinued Medications Misoprostol (Misoprostol 25 Mcg (1/4 Of 100 Mcg) Tab) 25 mcg PO Q4H PRN PRN Reason: Cervical Ripening Misoprostol (Misoprostol 25 Mcg (1/4 Of 100 Mcg) Tab) 25 mcg PO ONETIME ONE Stop: 07/30/20 17:32 Last Admin: 07/30/20 19:58 Dose: 25 mcg Documented by: Misoprostol (Misoprostol 25 Mcg (1/4 Of 100 Mcg) Tab) 25 mcg VAG Q4H ONE Stop: 07/30/20 17:33 Last Admin: 07/30/20 19:59 Dose: 25 mcg Documented by: Misoprostol (Misoprostol 25 Mcg (1/4 Of 100 Mcg) Tab) 25 mcg PO ONETIME ONE Stop: 07/31/20 00:10 Last Admin: 07/31/20 00:38 Dose: 25 mcg Documented by: Promethazine HCl (Promethazine 25 Mg Tab) 25 mg PO Q8H PRN PRN Reason: Other - Exam General: Alert, Oriented, Cooperative, Moderate Distress (Anxiety and PTSD exacerbated with and experiences.) HEENT: Pupils Equal, Pupils Reactive, Mucous Membr. Moist/[place] Neck: Supple Lungs: Clear to Auscultation, Normal Respiratory Effort Cardiovascular: Regular Rate, Regular Rhythm GI/Abdominal Exam: Normal Bowel Sounds, Soft, Non-Tender, No Organomegaly, No Distention (Female) Exam: Normal External Exam, Enlarged Uterus ( uterus, firm @U), Vaginal Bleeding (No to scant vaginal bleeding.) Back Exam: Normal Inspection, Full Range of Motion Extremities: Normal Inspection, Normal Range of Motion, Non-Tender, No Pedal Edema, Normal Capillary Refill Skin: Warm, Dry, Intact Wound/Incisions: No Drainage Neurological: No New Focal Deficit Psy/Mental Status: Alert, Normal Affect, Normal Mood - Problem List & Annotations (1) (spontaneous vaginal delivery) SNOMED Code(s): 829508984 Code(s): O80 - ENCOUNTER FOR FULL-TERM UNCOMPLICATED DELIVERY Status: Acute Priority: High Current Visit: Yes (2) Placental abruption SNOMED Code(s): 435509137 Code(s): O45.90 - PREMATURE SEPARATION OF PLACENTA, UNSP, UNSP TRIMESTER Status: Acute Priority: High Current Visit: Yes (3) Lactating mother SNOMED Code(s): 349284131, 534673102 Code(s): Z39.1 - ENCOUNTER FOR CARE AND EXAMINATION OF LACTATING MOTHER Status: Acute Priority: High Current Visit: Yes - Problem List Review Problem List Initiated/Reviewed/Updated: Yes - Plan Plan:: Admit to inpatient unit following complicated by terminal placental abruption with of post-dates NBM. May ambulate with assistance, goal to ambulate 3-5 times daily. If patient has not spontaneously voided within 4 hours, please contact provider. May receive PO analgesia for pain and uterine cramping as needed. May consult specialty sales consultant as needed for support, desires to EBF. Plan for H/H collection tomorrow in am. See new orders. Dr. Silva notified and agreeable with POC.
[2020-07-31] MEDS ORDERED: Docusate Sodium 100 MG Cap PO PRN (06:16)
[2020-07-31] MEDS ORDERED: Benzocaine/Menthol 20%-0.5% Spray 78 GM Cannister TOP PRN (06:16)
[2020-07-31] MEDS ORDERED: Ibuprofen 400 MG Tab PO PRN (06:16)
[2020-07-31] MEDS ORDERED: Bisacodyl 10 MG Supp RECTAL PRN (06:16)
[2020-07-31] MEDS ORDERED: Witch Hazel Medicated Pads 40/Jar TOP PRN (06:16)
[2020-07-31] MEDS ORDERED: Lanolin 100% Cream 7 GM Tube TOP PRN (06:16)
[2020-07-31] MEDS ORDERED: Acetaminophen 500 MG Tab PO PRN (06:16)
[2020-07-31] MEDS: Ibuprofen 800 MG Tab PO PRN ×2 (06:36→21:36)
[2020-07-31] MEDS: Acetaminophen 500 MG Tab PO PRN (13:14)
[2020-07-31 14:07] LABS: C.TRACHOMATIS BY TMA Negative (Negative); N.GONORRHOEAE BY TMA Negative (Negative)
[2020-08-01] MEDS: Acetaminophen 500 MG Tab PO PRN ×2 (09:34→19:37)
[2020-08-01] MEDS: Ibuprofen 800 MG Tab PO PRN ×2 (16:13→22:58)
--- NOTE | 2020-08-01 17:08 | PCM.PNPP ---
- General Info Date of Service: 08/01/20 Admission Dx/Problem (Free Text): Patient Status Order with Admit Dx/Problem 07/29/20 23:47 Patient Status [ADT] Routine 07/30/20 00:54 Patient Status [ADT] Routine Admission Diagnosis/Problem Admission Diagnosis/Problem 07/30/20 07:23 [id number] @ 42 weeks gestation ([place]RIE: 07/16/20 by LMP) presenting to L&D for induction of labor due to low amniotic fluid level and post-dates. She was seen in our clinic by Evelia Harvey CNM for a consult d/t post-dates . That was her first visit with us in the clinic. Prior to that, she had been followed by a Financial Writer (DEM) and had planned for a home delivery. Reactive NST obtained. However, BPP was 6/8 with 2 points off for amniotic fluid (DVP: 1.8 cm). A discussion was had regarding our recommendation for in duction. Patient desired to speak with her impress associate and report back. She later decided to move forward with induction. Patient reports increased anxiety with medical care. 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 She has also experienced SAB x10 (2 resulting in D&E). She reports having completed and passed a limited glucose challenge during . Reports to nurse that she smokes marijuana almost daily; reports she has a medical marijuana card. Anatomic survey not completed. She declines GBS screening; status unknown. Reports to nurse that she was GBS+ with her other children. Declines GBS disease with previous pregnancies. Hyperemesis gravidarum reported this ; treated adequately with Diclegis. Pre- weight reported as 160 lbs (BMI: 25.8). She has gained approximately 54 lbs this . O+, Rubella unknown 07/30/20 07:37 Subjective Update: Mom is doing well. Baby well. Pediatric hospitalist decided to keep the baby for 48hrs b/c of the positive GBS status, not treated. Functional Status: Reports: Pain Controlled - Review of Systems General: Reports: No Symptoms HEENT: Reports: No Symptoms Pulmonary: Reports: No Symptoms Cardiovascular: Reports: No Symptoms Gastrointestinal: Reports: No Symptoms Genitourinary: Reports: No Symptoms Musculoskeletal: Reports: No Symptoms Skin: Reports: No Symptoms Neurological: Reports: No Symptoms Psychiatric: Reports: No Symptoms - General Info Date of Service: 08/01/20 - Patient Data Vital Signs - Most Recent: Last Vital Signs Temp 96.8 F L 08/01/20 08:06 Pulse 95 08/01/20 08:06 Resp 18 08/01/20 08:06 BP 122/78 08/01/20 08:06 Pulse Ox 98 08/01/20 08:06 Weight - Most Recent: 97.069 kg Lab Results - Last 24 Hours: Laboratory Results - last 24 hr 08/01/20 Range/Units 05:10 Hgb 12.6 (12.0-16.0) g/dL Hct 38.7 (36.0-46.0) % Med Orders - Current: Current Medications Acetaminophen (Acetaminophen 500 Mg Tab) 500 mg PO Q4H PRN PRN Reason: Pain Last Admin: 08/01/20 07:29 Dose: 500 mg Documented by: Acetaminophen (Acetaminophen 500 Mg Tab) 1,000 mg PO Q4H PRN PRN Reason: Pain Last Admin: 08/01/20 09:34 Dose: 500 mg Documented by: Benzocaine/Menthol (Benzocaine/Menthol 20%-0.5% Aldrich 78 Gm Cannister) 78 gm TOP ASDIRECTED PRN PRN Reason: Perineal Comfort Measure Last Admin: 07/31/20 06:36 Dose: 1 can Documented by: Bisacodyl (Bisacodyl 10 Mg Supp) 10 mg RECTAL ONETIME PRN PRN Reason: Constipation Docusate Sodium (Docusate Sodium 100 Mg Cap) 100 mg PO BID PRN PRN Reason: Constipation Emollient Ointment (Lanolin 100% Cream 7 Gm Tube) 0 gm TOP ASDIRECTED PRN PRN Reason: Sore Nipples Ibuprofen (Ibuprofen 400 Mg Tab) 400 mg PO Q4H PRN PRN Reason: Pain Ibuprofen (Ibuprofen 800 Mg Tab) 800 mg PO Q6H PRN PRN Reason: Pain Last Admin: 08/01/20 16:13 Dose: 800 mg Documented by: Chelly Bowling (Chelly Bowling Medicated Pads 40/Jar) 1 pad TOP ASDIRECTED PRN PRN Reason: comfort care Last Admin: 07/31/20 06:36 Dose: 1 canister Documented by: Discontinued Medications Carboprost Tromethamine (Carboprost Tromethamine 250 Mcg/1 Ml Amp) 250 mcg IM ASDIRECTED PRN PRN Reason: Post Hemorrhage Hydroxyzine Pamoate (Hydroxyzine Pamoate 25 Mg Cap) 50 mg PO BEDTIME PRN PRN Reason: Sleep Last Admin: 07/30/20 01:02 Dose: 50 mg Documented by: Oxytocin/Sodium Chloride (Oxytocin 30 Unit/500 Ml-Ns) 30 unit in 500 mls @ 2 mls/hr IV TITRATE ALISON; Protocol Lactated Ringer's (Ringers, Lactated) 1,000 mls @ 150 mls/hr IV ASDIRECTED ALISON Last Admin: 07/30/20 12:50 Dose: 999 mls/hr Documented by: Oxytocin/Sodium Chloride (Oxytocin 30 Unit/500 Ml-Ns) 30 unit in 500 mls @ 999 mls/hr IV TITRATE ALISON Tranexamic Acid 1,000 mg/ (Sodium Chloride) 110 mls @ 660 mls/hr IV ONETIME PRN PRN Reason: Bleeding Lidocaine HCl (Lidocaine 1% 50 Ml Mdv) 50 ml INJECT ONETIME PRN PRN Reason: Laceration repair Misoprostol (Misoprostol 25 Mcg (1/4 Of 100 Mcg) Tab) 25 mcg VAG ONETIME PRN PRN Reason: Cervical Ripening Last Admin: 07/30/20 01:05 Dose: 25 mcg Documented by: Misoprostol (Misoprostol 25 Mcg (1/4 Of 100 Mcg) Tab) 25 mcg VAG Q4H PRN PRN Reason: Cervical Ripening Last Admin: 07/31/20 00:38 Dose: 25 mcg Documented by: Misoprostol (Misoprostol 200 Mcg Tab) 200 mcg PO ONETIME PRN PRN Reason: Post Hemorrhage Misoprostol (Misoprostol 25 Mcg (1/4 Of 100 Mcg) Tab) 25 mcg PO ONETIME PRN PRN Reason: Cervical Ripening Last Admin: 07/30/20 05:17 Dose: 25 mcg Documented by: Misoprostol (Misoprostol 25 Mcg (1/4 Of 100 Mcg) Tab) 25 mcg PO Q4H PRN PRN Reason: Cervical Ripening Misoprostol (Misoprostol 25 Mcg (1/4 Of 100 Mcg) Tab) 25 mcg PO ONETIME ONE Stop: 07/30/20 17:32 Last Admin: 07/30/20 19:58 Dose: 25 mcg Documented by: Misoprostol (Misoprostol 25 Mcg (1/4 Of 100 Mcg) Tab) 25 mcg VAG Q4H ONE Stop: 07/30/20 17:33 Last Admin: 07/30/20 19:59 Dose: 25 mcg Documented by: Misoprostol (Misoprostol 25 Mcg (1/4 Of 100 Mcg) Tab) 25 mcg PO ONETIME ONE Stop: 07/31/20 00:10 Last Admin: 07/31/20 00:38 Dose: 25 mcg Documented by: Ondansetron HCl (Ondansetron 4 Mg/2 Ml Sdv) 4 mg IVPUSH Q6H PRN PRN Reason: Nausea/Vomiting Promethazine HCl (Promethazine 25 Mg Tab) 25 mg PO Q8H PRN PRN Reason: Other Promethazine HCl (Promethazine 25 Mg Tab) 50 mg PO Q8H PRN PRN Reason: Other Last Admin: 07/30/20 19:57 Dose: 50 mg Documented by: Sodium Chloride (Sodium Chloride 0.9% 10 Ml Syringe) 10 ml FLUSH ASDIRECTED PRN PRN Reason: Keep Vein Open Sodium Chloride (Sodium Chloride 0.9% 2.5 Ml Syringe) 2.5 ml FLUSH ASDIRECTED PRN PRN Reason: Keep Vein Open Sodium Chloride (Sodium Chloride 0.9% 10 Ml Sdv) 10 ml IV ASDIRECTED PRN PRN Reason: IV Use Sterile Water (Water For Irrigation,Sterile 1,000 Ml Container) 1,000 ml IRR ASDIRECTED PRN PRN Reason: delivery Terbutaline Sulfate (Terbutaline 1 Mg/Ml Sdv) 0.25 mg SUBCUT ASDIRECTED PRN PRN Reason: Tacysystole - Infant Interaction Disposition, : in Room with Family Interaction: Holding Infant Feeding: Breastfed ; Nursed Well, Continues to Breastfeed Support Person: , Other (see below) - Recovery Exam Fundal Tone: Firm Fundal Level: 1 Fingerbreadths Below Umbilicus Fundal Placement: Right Lochia Amount: Scant, Small Lochia Color: Rubra/Red Perineum Description: Intact, Minimal Bruising/Swelling Episiotomy/Laceration: None Bladder Status: Voiding Urinary Elimination: Voided - Exam General: Alert, Oriented Lungs: Normal Respiratory Effort Cardiovascular: Regular Rate GI/Abdominal Exam: Soft, Non-Tender Extremities: Normal Inspection Psy/Mental Status: Alert, Normal Affect, Normal Mood - Problem List & Annotations (1) (spontaneous vaginal delivery) SNOMED Code(s): 684473324 Code(s): O80 - ENCOUNTER FOR FULL-TERM UNCOMPLICATED DELIVERY Status: Acute Priority: High Current Visit: Yes - Problem List Review Problem List Initiated/Reviewed/Updated: Yes - Plan Plan:: () s/p of viable post-dates NBM @ 42+1 weeks gestation (TORRIE(LMP) 07/16/20) following IOL d/t low amniotic fluid level and post-dates Patient is doing well. Continue with routine PP care
[2020-08-01 19:29] VITALS: BP 122/74; PULSE 103
--- NOTE | 2020-08-02 05:26 | PCM.DCSUM1 ---
Discharge Summary - Hospital Course Free Text/Narrative:: Megan () PPD2 s/p of viable post-dates NBM @ 42+1 weeks gestation ([facility]RIE(LMP) 07/16/20) following IOL d/t low amniotic fluid level and post-dates . O pos, Ab screen neg, R unknown, GBS positive with declination of prophylactic antibiotics for duration of labor. Patient has no complaints or concerns at this time. Patient is exclusively well, confirmed with test consultant. Resting comfortably in bed with in arms latched to left breast. Patient reports she is eating, voiding, ambulating independently and without difficulty. Patient denies any problems or concerns at this time except mild-moderate intermittent uterine cramping relieved with Tylenol and Ibuprofen. Patient reports small vaginal bleeding with no clots. Patient verbalizes her readiness to be discharged home today. Diagnosis: Stroke: No - Discharge Data Discharge Date: 08/02/20 Discharge Disposition: Home, Self-Care 01 Condition: Good - Referral to Home Health Primary Care Physician: PCP None - Discharge Diagnosis/Problem(s) (1) (spontaneous vaginal delivery) SNOMED Code(s): 389032797 ICD Code: O80 - ENCOUNTER FOR FULL-TERM UNCOMPLICATED DELIVERY Status: Acute Priority: High Current Visit: Yes (2) Placental abruption SNOMED Code(s): 970836699 ICD Code: O45.90 - PREMATURE SEPARATION OF PLACENTA, UNSP, UNSP TRIMESTER Status: Acute Priority: High Current Visit: Yes (3) Lactating mother SNOMED Code(s): 665465168, 407218521 ICD Code: Z39.1 - ENCOUNTER FOR CARE AND EXAMINATION OF LACTATING MOTHER Status: Acute Priority: High Current Visit: Yes - Patient Instructions Diet: Usual Diet as Tolerated, Regular Diet as Tolerated, Drink 8-10+ Glasses/Day Activity: As Tolerated, No Strenuous Activities, Rest and Relax Today Driving: May Drive Today Showering/Bathing: May Shower Showering/Bathing, Other: May sitz bathe for perineal comfort Notify Provider of: Fever, Increased Pain, Swelling and Redness, Drainage, Nausea and/or Vomiting - Discharge Plan *PRESCRIPTION DRUG MONITORING PROGRAM REVIEWED*: No *COPY OF PRESCRIPTION DRUG MONITORING REPORT IN PATIENT DELL: No Prescriptions/Med Rec: Ibuprofen [Motrin] 800 mg PO Q8H PRN #90 tablet PRN Reason: Pain Home Medications: Home Meds Albuterol Sulfate 1 inh NEB ASDIRECTED PRN 10/25/17 [History] Cholecalciferol (Vitamin D3) [Vitamin D3] 1,000 units PO DAILY 10/25/17 [History] Doxylamine Succinate/Vit B6 [Diclegis Dr 10-10 mg Tablet] 2 tab PO BID 10/25/17 [History] Pnv No.95/Ferrous Fum/Folic AC [ Vitamin Tablet] 1 tab PO DAILY 10/25/17 [History] Ibuprofen [Motrin] 800 mg PO Q8H PRN #90 tablet 08/02/20 [Rx] Oxygen Therapy Mode: Room Air Patient Handouts: Baby Blues, Care After Vaginal Delivery Referrals: Evelia Harvey CNM [Mid-] - 09/11/20 10:30 am (Masks are still required in the clinic at this time. You may bring your baby with to your appointment.) - Discharge Summary/Plan Comment DC Time >30 min.: Yes Discharge Summary/Plan Comment: Hemodynamically stable, afebrile. Independent with ADLs, pain well controlled. Ibuprofen prescription sent to pharmacy. Warning S/Ss, when to call for help discussed, no questions or concerns. F/U in office in 6 weeks for visit or sooner if problem arise. - General Info Date of Service: 08/02/20 Admission Dx/Problem (Free Text: Patient Status Order with Admit Dx/Problem 07/29/20 23:47 Patient Status [ADT] Routine 07/30/20 00:54 Patient Status [ADT] Routine Admission Diagnosis/Problem Admission Diagnosis/Problem 07/30/20 07:23 [id number] @ 42 weeks gestation ([facility]RIE: 07/16/20 by LMP) presenting to L&D for induction of labor due to low amniotic fluid level and post-dates. She was seen in our clinic by Evelia Harvey CNM for a consult d/t post-dates . That was her first visit with us in the clinic. Prior to that, she had been followed by a Medical Geneticist ([facility]) and had planned for a home delivery. Reactive NST obtained. However, BPP was 6/8 with 2 points off for amniotic fluid (DVP: 1.8 cm). A discussion was had regarding our recommendation for induction. Patient desired to speak with her clinical rn liaison and report back. She later decided to move forward with induction. Patient reports increased anxiety with medical care. 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 She has also experienced SAB x10 (2 resulting in D&E). She reports having completed and passed a limited glucose challenge during . Reports to nurse that she smokes marijuana almost daily; reports she has a medical marijuana card. Anatomic survey not completed. She declines GBS screening; status unknown. Reports to nurse that she was GBS+ with her other children. Declines GBS disease with previous pregnancies. Hyperemesis gravidarum reported this ; treated adequately with Diclegis. Pre- weight reported as 160 lbs (BMI: 25.8). She has gained approximately 54 lbs this . O+, Rubella unknown 07/30/20 07:37 Subjective Update: Mom is doing well. Baby well. Pediatric hospitalist decided to keep the baby for 48hrs b/c of the positive GBS status, not treated. Functional Status: Reports: Tolerating Diet, Ambulating, Urinating - Review of Systems General: Reports: No Symptoms HEENT: Reports: No Symptoms Pulmonary: Reports: No Symptoms Cardiovascular: Reports: No Symptoms Gastrointestinal: Reports: No Symptoms Genitourinary: Reports: No Symptoms Musculoskeletal: Reports: No Symptoms Skin: Reports: No Symptoms Neurological: Reports: No Symptoms Psychiatric: Reports: No Symptoms - Patient Data Vitals - Most Recent: Last Vital Signs Temp 97.5 F 08/01/20 19:28 Pulse 103 H 08/01/20 19:28 Resp 18 08/01/20 19:28 BP 122/74 08/01/20 19:28 Pulse Ox 98 08/01/20 19:28 Weight - Most Recent: 214 lb Lab Results - Last 24 hrs: Laboratory Results - last 24 hr 08/01/20 Range/Units 05:10 Hgb 12.6 (12.0-16.0) g/dL Hct 38.7 (36.0-46.0) % Med Orders - Current: Current Medications Acetaminophen (Acetaminophen 500 Mg Tab) 500 mg PO Q4H PRN PRN Reason: Pain Last Admin: 08/01/20 07:29 Dose: 500 mg Documented by: Acetaminophen (Acetaminophen 500 Mg Tab) 1,000 mg PO Q4H PRN PRN Reason: Pain Last Admin: 08/01/20 19:37 Dose: 1,000 mg Documented by: Benzocaine/Menthol (Benzocaine/Menthol 20%-0.5% Braymer 78 Gm Cannister) 78 gm TOP ASDIRECTED PRN PRN Reason: Perineal Comfort Measure Last Admin: 07/31/20 06:36 Dose: 1 can Documented by: Bisacodyl (Bisacodyl 10 Mg Supp) 10 mg RECTAL ONETIME PRN PRN Reason: Constipation Docusate Sodium (Docusate Sodium 100 Mg Cap) 100 mg PO BID PRN PRN Reason: Constipation Emollient Ointment (Lanolin 100% Cream 7 Gm Tube) 0 gm TOP ASDIRECTED PRN PRN Reason: Sore Nipples Ibuprofen (Ibuprofen 400 Mg Tab) 400 mg PO Q4H PRN PRN Reason: Pain Ibuprofen (Ibuprofen 800 Mg Tab) 800 mg PO Q6H PRN PRN Reason: Pain Last Admin: 08/01/20 22:58 Dose: 800 mg Documented by: Chelly Bowling (Chelly Bowling Medicated Pads 40/Jar) 1 pad TOP ASDIRECTED PRN PRN Reason: comfort care Last Admin: 07/31/20 06:36 Dose: 1 canister Documented by: Discontinued Medications Carboprost Tromethamine (Carboprost Tromethamine 250 Mcg/1 Ml Amp) 250 mcg IM ASDIRECTED PRN PRN Reason: Post Hemorrhage Hydroxyzine Pamoate (Hydroxyzine Pamoate 25 Mg Cap) 50 mg PO BEDTIME PRN PRN Reason: Sleep Last Admin: 07/30/20 01:02 Dose: 50 mg Documented by: Oxytocin/Sodium Chloride (Oxytocin 30 Unit/500 Ml-Ns) 30 unit in 500 mls @ 2 mls/hr IV TITRATE ALISON; Protocol Lactated Ringer's (Ringers, Lactated) 1,000 mls @ 150 mls/hr IV ASDIRECTED ALISON Last Admin: 07/30/20 12:50 Dose: 999 mls/hr Documented by: Oxytocin/Sodium Chloride (Oxytocin 30 Unit/500 Ml-Ns) 30 unit in 500 mls @ 999 mls/hr IV TITRATE ALISON Tranexamic Acid 1,000 mg/ (Sodium Chloride) 110 mls @ 660 mls/hr IV ONETIME PRN PRN Reason: Bleeding Lidocaine HCl (Lidocaine 1% 50 Ml Mdv) 50 ml INJECT ONETIME PRN PRN Reason: Laceration repair Misoprostol (Misoprostol 25 Mcg (1/4 Of 100 Mcg) Tab) 25 mcg VAG ONETIME PRN PRN Reason: Cervical Ripening Last Admin: 07/30/20 01:05 Dose: 25 mcg Documented by: Misoprostol (Misoprostol 25 Mcg (1/4 Of 100 Mcg) Tab) 25 mcg VAG Q4H PRN PRN Reason: Cervical Ripening Last Admin: 07/31/20 00:38 Dose: 25 mcg Documented by: Misoprostol (Misoprostol 200 Mcg Tab) 200 mcg PO ONETIME PRN PRN Reason: Post Hemorrhage Misoprostol (Misoprostol 25 Mcg (1/4 Of 100 Mcg) Tab) 25 mcg PO ONETIME PRN PRN Reason: Cervical Ripening Last Admin: 07/30/20 05:17 Dose: 25 mcg Documented by: Misoprostol (Misoprostol 25 Mcg (1/4 Of 100 Mcg) Tab) 25 mcg PO Q4H PRN PRN Reason: Cervical Ripening Misoprostol (Misoprostol 25 Mcg (1/4 Of 100 Mcg) Tab) 25 mcg PO ONETIME ONE Stop: 07/30/20 17:32 Last Admin: 07/30/20 19:58 Dose: 25 mcg Documented by: Misoprostol (Misoprostol 25 Mcg (1/4 Of 100 Mcg) Tab) 25 mcg VAG Q4H ONE Stop: 07/30/20 17:33 Last Admin: 07/30/20 19:59 Dose: 25 mcg Documented by: Misoprostol (Misoprostol 25 Mcg (1/4 Of 100 Mcg) Tab) 25 mcg PO ONETIME ONE Stop: 07/31/20 00:10 Last Admin: 07/31/20 00:38 Dose: 25 mcg Documented by: Ondansetron HCl (Ondansetron 4 Mg/2 Ml Sdv) 4 mg IVPUSH Q6H PRN PRN Reason: Nausea/Vomiting Promethazine HCl (Promethazine 25 Mg Tab) 25 mg PO Q8H PRN PRN Reason: Other Promethazine HCl (Promethazine 25 Mg Tab) 50 mg PO Q8H PRN PRN Reason: Other Last Admin: 07/30/20 19:57 Dose: 50 mg Documented by: Sodium Chloride (Sodium Chloride 0.9% 10 Ml Syringe) 10 ml FLUSH ASDIRECTED PRN PRN Reason: Keep Vein Open Sodium Chloride (Sodium Chloride 0.9% 2.5 Ml Syringe) 2.5 ml FLUSH ASDIRECTED PRN PRN Reason: Keep Vein Open Sodium Chloride (Sodium Chloride 0.9% 10 Ml Sdv) 10 ml IV ASDIRECTED PRN PRN Reason: IV Use Sterile Water (Water For Irrigation,Sterile 1,000 Ml Container) 1,000 ml IRR ASDIRECTED PRN PRN Reason: delivery Terbutaline Sulfate (Terbutaline 1 Mg/Ml Sdv) 0.25 mg SUBCUT ASDIRECTED PRN PRN Reason: Tacysystole - Exam General: Reports: Alert, Oriented, Cooperative, No Acute Distress HEENT: Reports: Pupils Equal, Mucous Membr. Moist/[place] Neck: Reports: Supple Lungs: Reports: Clear to Auscultation, Normal Respiratory Effort Cardiovascular: Reports: Regular Rate, Regular Rhythm GI/Abdominal Exam: Normal Bowel Sounds, Soft, Non-Tender, No Organomegaly, No Distention, No Abnormal Bruit (Female) Exam: Normal External Exam, Enlarged Uterus ( uterus, firm U-1), Vaginal Bleeding (Scant to small rubra lochia, no clots.) Rectal (Female) Exam: Deferred Back Exam: Reports: Normal Inspection, Full Range of Motion Extremities: Normal Inspection, Normal Range of Motion, Non-Tender, No Pedal Edema, Normal Capillary Refill Skin: Reports: Warm, Dry, Intact Neurological: Reports: No New Focal Deficit Psy/Mental Status: Reports: Alert, Normal Affect, Normal Mood
[2020-08-02] MEDS: Ibuprofen 800 MG Tab PO PRN (06:03)
== END 2020-08-02 08:46 | disposition home or self-care (01) | DRG 560 ==
LOC: MW.OBCHECK 23:42 → MW.OB 23:42 → MW.OBCHECK 07-30 00:54 → MW.OB 07-30 00:54 → OBSVTOIN 07-31 06:16 → MW.OB 07-31 09:00
PROVIDERS: ADMIT Obstetrics & Gynecology; ATTEND Obstetrics & Gynecology
PROC: 10E0XZZ Delivery of Products of Conception, External Approach (ICD-10-PCS; principal; 2020-07-31)
PROC: 3E0P7VZ Introduction of Hormone into Female Reproductive, Via Natural or Artificial Opening (ICD-10-PCS; 2020-07-31)
PROC: 10907ZC Drainage of Amniotic Fluid, Therapeutic from Products of Conception, Via Natural or Artificial Opening (ICD-10-PCS; 2020-07-31)
DX: O48.0 Post-term pregnancy (principal); O99.324 Drug use complicating childbirth; F12.90 Cannabis use, unspecified, uncomplicated; O99.344 Other mental disorders complicating childbirth; F41.9 Anxiety disorder, unspecified; O76 Abnormality in fetal heart rate and rhythm complicating labor and delivery; O45.93 Premature separation of placenta, unspecified, third trimester; O69.81X0 Labor and delivery complicated by cord around neck, without compression, not applicable or unspecified; O70.0 First degree perineal laceration during delivery; J45.909 Unspecified asthma, uncomplicated; O99.52 Diseases of the respiratory system complicating childbirth; Z20.822 Contact with and (suspected) exposure to COVID-19; O99.824 Streptococcus B carrier state complicating childbirth; O77.0 Labor and delivery complicated by meconium in amniotic fluid; Z3A.42 42 weeks gestation of pregnancy; Z37.0 Single live birth; Z88.8 Allergy status to other drugs, medicaments and biological substances; Z90.49 Acquired absence of other specified parts of digestive tract
CPT/HCPCS: 36415; 59025; 59200; 59409; 80305-QW; 82947; 85014; 85018; 85027; 86592; 86762; 86803; 86850; 86900; 86901; 87340; 87491; 87591; 87653; A9270-GY; J7120; U0002